=== PATIENT | female | born 1985 | race Caucasian/White ===

== ENCOUNTER → 2016-07-17 | Outpatient (CLI) | payer BC ==
[2016-07-17 12:58] LABS: CH 29.8; CHCM 33.6; HCT 36.4 % (34.0-46.0); HDW 2.21; HGB 12.1 gm/dL (11.4-16.0); MCH 29.4 pg (25.0-35.0); MCHC 33.2 g/dL (31.0-37.0); MCV 88.7 fL (80.0-100.0); RDW 12.1 % (11.5-15.5); WBC 12.1 k/uL (3.8-10.6)
[2016-07-17 13:17] LABS: Glucose 76 mg/dL (74-99); Non-African American GFR(MDRD) >60 (>60 ml/min/1.73 sqM)
[2016-07-17 13:49] LABS: Hepatitis B Surface Ag Index 0.07
[2016-07-19 03:59] LABS: HIV-1/HIV-2 Ab Screen NONREAC (NON REAC)
== END | disposition home or self-care (01) ==
LOC: LABWHC1 11:21
PROVIDERS: ATTEND Obstetrics & Gynecology
DX: Z34.81 Encounter for supervision of other normal pregnancy, first trimester (principal); Z3A.00 Weeks of gestation of pregnancy not specified
CPT/HCPCS: 36415; 82565; 82947; 85027; 86762; 86780; 86850; 86900; 86901; 87340; 87389

== ENCOUNTER → 2016-10-09 | Outpatient (CLI) | payer BC ==
--- NOTE | 2016-10-09 13:57 | US ---
EXAMINATION TYPE: US OB anatomy transabd second trimester. DATE OF EXAM: 10/09/2016 1:11 PM COMPARISON: NONE HISTORY: O36.62X0 Large for dates 2nd trimester TECHNIQUE: Transabdominal (TA) EXAM MEASUREMENTS: GESTATIONAL AGE / DATING Physician Established: (19 weeks/2 days) EDC: 03/04/17 Dates by LMP: unknown Dates by First Scan: not available Dates by Current Scan for: (19 weeks/2 days) EDC: 03/03/17 SURVEY IUP: Single PLACENTA: Anterior PREVIA: No previa JANNA: 14.8 cm CERVICAL LENGTH (transabdominal: norm > 3.0cm): 3.0 cm BIOMETRY PRESENTATION: Breech BPD: 4.4 cm 19 weeks / 2 days HC: 16.6 cm 19 weeks / 2 days AC: 13.9 cm 19 weeks / 2 days FL: 2.9 cm 19 weeks / 2 days ESTIMATED WEIGHT IN GRAMS: 283 grams ESTIMATED WEIGHT IN LBS/OZS: 0 lbs. 10 oz. WEIGHT PERCENTAGE BASED ON ESTABLISHED DATE: 53 % HC/AC: 1.2 FL/AC: 21.5 HEART RATE: 171 bpm RHYTHM: Arrhythmia ANATOMY SEEN (within normal limits): * Lateral Vent (< 1 cm) 0.7 cm * Cisterna Magna (< 1.1 cm) 0.4 cm * Nuchal Fold (< 0.6 cm) 0.4 cm * Cerebellum (varies with age) 1.9 cm Choroid Plexus (bilateral) Midline Falx Cavus Septi Pellucidi Four Chamber Heart Outflow tracts: LVOT/RVOT Stomach Situs Nose / Lips Diaphragm Kidneys (bilateral) Bladder Cord Insert Three Vessel Cord Longitudinal Spine Transverse Spine Arms (bilateral) Legs (bilateral) MATERNAL WALL MEASUREMENT: cm from skin to anterior uterine wall (if exam limited due to body habitus ). Single live intrauterine gestation is present. A breech presentation to fetus is currently seen. Feta l heart tones are noted irregular by technologist during real-time scanning measuring 171 bpm which i s upper limits of normal. There is no ultrasound evidence for placenta previa. Amniotic fluid index i s within normal limits. biometry measurements are congruent and within normal limits. Detailed anatomical survey shows no suspicious abnormality during real-time scanning and on still images saved . With exception of nose and lips and bilateral kidneys which are not well seen on still images saved. IMPRESSION: As above
== END | disposition home or self-care (01) ==
LOC: RADUSWWP 12:17
PROVIDERS: ATTEND Obstetrics & Gynecology
DX: O32.1XX0 Maternal care for breech presentation, not applicable or unspecified (principal); Z3A.19 19 weeks gestation of pregnancy
CPT/HCPCS: 76811

== ENCOUNTER 2016-10-27 17:31 | Outpatient (CLI) | payer BC ==
[2016-10-27 18:10] VITALS: BP 112/65; PULSE 74; RESP 20; TEMP 96.9
--- NOTE | 2016-10-28 10:29 | P.MSEPDOC ---
Presenting Problems - Arrival Data Date of Arrival on Unit: 10/27/16 Time of Arrival on Unit: 17:31 Mode of Transport: Wheelchair - Complaint OB-Reason for Admission/Chief Complaint: Rule Out PROM Medical History - Information : 3 Para: 1 Term: 1 : 0 Abortions: Spontaneous or Elective: 1 Number of Living Children: 1 - Gestational Age Expected Date of Delivery: 03/04/17 Gestational Age by CIARA (wks/days): 21 Weeks and 6 Days - History Complications: Prior Review of Systems - Review of Systems Constitutional: No problems Breast: No problems ENT: No problems Cardiovascular: No problems Respiratory: No problems Gastrointestinal: No problems Genitourinary: No problems Musculoskeletal: No problems Neurological: No problems Skin: No problems Vital Signs - Temperature Temperature: 96.9 F Temperature Source: Skin - Pulse Brachial Pulse Rate: 74 Pulse Assessment Method: Automatic Cuff - Respirations Respiratory Rate: 20 Oxygen Delivery Method: Room Air O2 Sat by Pulse Oximetry: 100 - Blood Pressure Right Arm Blood Pressure: 112/65 Blood Pressure Mean: 80 Blood Pressure Source: Automatic Cuff Medical Screen Scoring (Pre) - Cervical Exam Dilation: Exam Deferred Effacement: Exam Deferred - Uterine Contractions Frequency: N/A Duration: N/A Intensity: N/A - Maternal Vital Signs Maternal Temperature: N/A Maternal Blood Pressure: N/A Signs of Preeclampsia: N/A Maternal Respirations: N/A - Maternal Trauma Maternal Trauma: N/A - Assessment Baseline FHR: 140 Heart Rate - NICHD Category: Category I (Normal) = 0 - Total Score Total Score (Pre): 0 Physician Notification (Pre) - Physician Notified Physician Notified Date: 10/27/16 Physician Notified Time: 18:31 Physician/Practitioner Notifed:: dr sharma Spoke With: dr sharma Medical Screen Scoring (Post) - Post Treatment Level of Risk Post Treatment Level of Risk: Low (0-5) Disposition - Disposition OB Disposition: Triage, Discharge to home, Written follow up instructions reviewed Discharge Date: 10/27/16 Discharge Time: 18:40 I agree with the RN Medical Screening Exam: Yes Risk & Benefit of care provided described in d/c instruction: Yes Diagnosis: FALSE LABOR BEFORE 37 COMPLETED WEEKS OF GEST, SECOND TRI
== END 2016-10-27 18:40 | disposition home or self-care (01) ==
LOC: FBPOP 17:31
PROVIDERS: ATTEND Obstetrics & Gynecology
DX: O47.02 False labor before 37 completed weeks of gestation, second trimester (principal); Z3A.21 21 weeks gestation of pregnancy
CPT/HCPCS: 84112; 99213

== ENCOUNTER → 2016-11-13 | Outpatient (CLI) | payer BC ==
[2016-11-13 10:43] LABS: CH 31.6; CHCM 33.5; HCT 31.6 % (34.0-46.0); HDW 2.37; HGB 10.5 gm/dL (11.4-16.0); MCH 31.5 pg (25.0-35.0); MCHC 33.2 g/dL (31.0-37.0); MCV 94.8 fL (80.0-100.0); Mean Platelet Volume 7.3; RBC 3.33 m/uL (3.80-5.40); RDW 13.3 % (11.5-15.5); WBC 12.9 k/uL (3.8-10.6)
== END | disposition home or self-care (01) ==
LOC: LABWHC1 09:04
PROVIDERS: ATTEND Obstetrics & Gynecology
DX: Z34.82 Encounter for supervision of other normal pregnancy, second trimester (principal); Z3A.00 Weeks of gestation of pregnancy not specified
CPT/HCPCS: 36415; 82950; 85027; 86850

== ENCOUNTER → 2016-12-19 | Outpatient (CLI) | payer BC ==
--- NOTE | 2016-12-19 17:25 | US ---
EXAMINATION TYPE: US thyroid st tissue head/neck DATE OF EXAM: 12/19/2016 COMPARISON: Previous study dated 08/03/2015. CLINICAL HISTORY: E04.1 Thyroid nodule. GLAND SIZE: Right Lobe: 4.3 x 1.6 x 1.8 cm Overall Parenchyma: homogenous Left Lobe: 3.9 x 1.2 x 1.1 cm Overall Parenchyma: homogeneous Isthmus Thickness: 0.3 cm NODULES RIGHT: # of nodules measured on right: 2 1. 0.5 X 0.6 x 0.4 cm isoechoic solid nodule at the lower pole with well-defined margins. This nod ule is wider than tall and shows no intranodular vascularity. Prior size: 0.6 x 0.5 x 0.6 cm 2. 0.4 X 0.4 x 0.2 cm echogenic solid nodule at the mid pole with well-defined margins. This nodule is wider than tall and shows no intranodular vascularity. Prior size: not seen LEFT: # of nodules measured on left: no nodules seen this US. ISTHMUS: # of nodules measured in the isthmus: 0 Bilateral neck scanned, no evidence of lymphadenopathy. IMPRESSION: MULTINODULAR GOITER.
== END | disposition home or self-care (01) ==
LOC: RADUSWWP 15:58
PROVIDERS: ATTEND Otolaryngology
DX: E04.2 Nontoxic multinodular goiter (principal)
CPT/HCPCS: 76536

== ENCOUNTER 2017-01-19 14:20 | Outpatient (CLI) | payer BC ==
[2017-01-19 14:42] VITALS: BP 105/56; PULSE 75; RESP 16; TEMP 97.7
--- NOTE | 2017-01-19 15:15 | P.PN ---
Progress Note - Text Patient is seen in labor and delivery for decreased movement. Patient presented with complaints of no movement for at least 2 or 3 days. She denies any vaginal bleeding and or abdominal pain. Nonstress test is reactive and on monitoring the nurse and I can hear the baby move. I did do a bedside ultrasound which shows gross movement and breathing as well as normal amniotic fluid. Patient states that she still does not perceive this movement although it is obvious the fetus is moving as noted on the monitor and on bedside ultrasound. Plan at this time is to continue to monitor for an hour. As long as heart tones remained reactive without concerns I feel she is stable for discharge home. Patient is going to see me on Saturday in our office and I will repeat her nonstress test at that time. There is no evidence of maternal or compromise at this time.
--- NOTE | 2017-01-20 01:44 | P.MSEPDOC ---
Presenting Problems - Arrival Data Date of Arrival on Unit: 01/19/17 Time of Arrival on Unit: 14:22 Mode of Transport: Ambulatory - Complaint OB-Reason for Admission/Chief Complaint: Decreased Movement Medical History - Information : 3 Para: 1 Term: 1 : 0 Abortions: Spontaneous or Elective: 1 Number of Living Children: 1 - Gestational Age Expected Date of Delivery: 02/26/17 Gestational Age by CIARA (wks/days): 34 Weeks and 5 Days Review of Systems - Review of Systems Constitutional: No problems Breast: No problems ENT: No problems Cardiovascular: No problems Respiratory: No problems Gastrointestinal: No problems Genitourinary: No problems Musculoskeletal: No problems Neurological: No problems Skin: No problems Vital Signs - Temperature Temperature: 97.7 F Temperature Source: Oral - Pulse Right Brachial Pulse Rate: 75 - Respirations Respiratory Rate: 16 Oxygen Delivery Method: Room Air O2 Sat by Pulse Oximetry: 97 - Blood Pressure Right Arm Blood Pressure: 105/56 Blood Pressure Mean: 72 Blood Pressure Source: Automatic Cuff Medical Screen Scoring (Pre) - Cervical Exam Dilation: Exam Deferred - Uterine Contractions Frequency: N/A - Maternal Vital Signs Maternal Temperature: N/A Maternal Blood Pressure: N/A Signs of Preeclampsia: N/A Maternal Respirations: N/A - Maternal Trauma Maternal Trauma: N/A - Assessment Baseline FHR: 135 Heart Rate - NICHD Category: Category I (Normal) = 0 NST: Reactive Position: N/A Station: N/A - Total Score Total Score (Pre): 0 - Level of Risk Level of Risk: Low (0-5) Physician Notification (Pre) - Notification Comment Comment: Dr Collado here in department, pt to be monitored for one hour, tracing reviewed per DR Collado Physician Notification (Post) - Notification Comment Comment: Dr Collado here in department, orders received, monitor patient for one hour then discharge patient home. Disposition - Disposition OB Disposition: Discharge to home Discharge Date: 01/19/17 Discharge Time: 15:37 I agree with the RN Medical Screening Exam: Yes Risk & Benefit of care provided described in d/c instruction: Yes Diagnosis: 33 WEEKS GESTATION OF
== END 2017-01-19 15:37 | disposition home or self-care (01) ==
LOC: FBPOP 14:20
PROVIDERS: ATTEND Obstetrics & Gynecology
DX: O36.8130 Decreased fetal movements, third trimester, not applicable or unspecified (principal); Z3A.34 34 weeks gestation of pregnancy
CPT/HCPCS: 59025; 99213

== ENCOUNTER 2017-02-26 05:40 | Inpatient (IN) | payer BC ==
[2017-02-22 13:39] VITALS: BMI 28.8
--- NOTE | 2017-02-25 07:23 | P.HPOB ---
History of Present Illness H&P Date: 02/25/17 Chief Complaint: Patient is presenting for repeat section and tubal ligation. This patient is a pleasant 31-year-old 3 para 1 female estimated date of confinement 03/04/2017 estimated gestational age 39 and one sevenths weeks gestation who presents to labor and delivery for elective repeat section and she is also requesting permanent sterilization. Patient's previous she had a primary section for failure progress for an 8 lbs. 9 oz. baby. I did review these records with the patient and she has requested repeat section. Patient also desires no further children. Patient has had some episodes of depressive symptoms this most recently and has requested going on antidepressants because she taken them in the past. She otherwise has been uncomplicated. Review of Systems Constitutional: Denies chills, Denies fever Ears, nose, mouth and throat: Denies headache, Denies sore throat Cardiovascular: Denies chest pain, Denies shortness of breath Gastrointestinal: Reports heartburn Genitourinary: Reports Menstruation: Reports amenorrhea Musculoskeletal: Denies myalgias Past Medical History Past Medical History: GERD/Reflux Additional Past Medical History / Comment(s): ACID REFLUX WITH . - LMP MAY 2016. History of Any Multi-Drug Resistant Organisms: None Reported Past Surgical History: Appendectomy, Section Past Anesthesia/Blood Transfusion Reactions: No Reported Reaction Past Psychological History: Anxiety, Depression Smoking Status: Never smoker Past Alcohol Use History: None Reported Past Drug Use History: None Reported - Past Family History Mother Family Medical History: No Reported History Medications and Allergies Home Medications Medication Instructions Recorded Confirmed Type Vitamin -[employer] 1 tab PO DAILY 02/22/17 02/22/17 History Allergies Allergy/AdvReac Type Severity Reaction Status Date / Time No Known Allergies Allergy Verified 02/22/17 13:31 Exam - OBG Physical Exam Abdomen: bowel sounds normal, no diffuse tenderness, no bruit present, no guarding noted, no hepatomegaly, no splenomegaly, no mass Vulva: both: normal Vagina: normal moisture, no discharge Cervix: no lesion (Cervix in the office was closed.), no discharge Uterus: normal size Results blood work shows she is A-, rubella low positive, HIV nonreactive, RPR is nonreactive, hepatitis B was negative, Glucola was normal, ultrasounds have been normal, patient did receive RhoGAM on December 06. Assessment and Plan (1) Third trimester Narrative/Plan: This is a pleasant 31-year-old 3 para 1 female 39 and one sevenths weeks gestation who presents to labor and delivery for elective repeat section and also requesting permanent sterilization. Plan is repeat low transverse section and bilateral partial salpingectomy. Patient does understand the surgery and risks including risks of infection, bleeding, possible injury to bowel, bladder, vessels, and/or other organs. She also understands that a tubal ligation is considered a permanent procedure however there is a failure rate of approximately 20-25 per thousand procedures done. Patient also understands risk of DVT and pulmonary embolism. All the patient's questions are answered and a written consent is obtained. Status: Acute (2) Previous delivery affecting Status: Acute (3) Family planning Status: Acute (4) Rh negative status during Status: Acute
[2017-02-26] MEDS ORDERED: CITRIC ACID-SODIUM CITRATE 15 ML CUP PO ONE (05:57)
[2017-02-26] MEDS ORDERED: LACTATED RINGERS 1,000 ML IV SCH (05:57)
[2017-02-26] MEDS ORDERED: LACTATED RINGERS 1,000 ML IV ONE (05:57)
[2017-02-26 06:27] LABS: Basophils % (A) 0 %; CH 32.3; CHCM 35.2; Eosinophils # (A) 0.3 k/uL (0-0.7); Eosinophils % (A) 2 %; HCT 34.4 % (34.0-46.0); HDW 2.56; HGB 12.1 gm/dL (11.4-16.0); Luc # (Auto) 0.39; Luc % (Auto) 3; Lymphocytes # (A) 2.6 k/uL (1.0-4.8); Lymphocytes % (A) 19 %; MCH 32.5 pg (25.0-35.0); MCHC 35.3 g/dL (31.0-37.0); MCV 92.1 fL (80.0-100.0); Mean Platelet Volume 8.2; Monocytes # (A) 0.9 k/uL (0-1.0); Monocytes % (A) 7 %; Neutrophils # (A) 9.3 k/uL (1.3-7.7); Neutrophils % (A) 69 %; RBC 3.74 m/uL (3.80-5.40); RDW 13.3 % (11.5-15.5); WBC 13.5 k/uL (3.8-10.6)
[2017-02-26] MEDS ORDERED: ceFAZolin 2 GM in SODIUM CHLORIDE 0.9% 100 ML IVPB ONE (07:15)
[2017-02-26] MEDS ORDERED: MORPHINE SULFATE (PF) 0.3 MG/0.3 ML SYR ONE (08:11)
[2017-02-26] MEDS ORDERED: OXYTOCIN 10 UNIT/ML 1 ML VIAL ONE (08:11)
[2017-02-26] MEDS ORDERED: diphenhydrAMINE 50 MG/ML 1 ML VIAL IVP PRN (09:21)
[2017-02-26] MEDS ORDERED: Rhogam IMMUNE GLOBULIN 1,500 UNIT/1 ML IM ONE (09:21)
[2017-02-26] MEDS ORDERED: METOCLOPRAMIDE 5 MG/ML 2 ML VIAL IVP PRN (09:21)
[2017-02-26] MEDS ORDERED: diphenhydrAMINE 25 MG CAP PO PRN (09:21)
[2017-02-26] MEDS ORDERED: SIMETHICONE 80 MG CHEWABLE PO PRN (09:21)
[2017-02-26] MEDS ORDERED: ACETAMINOPHEN TAB 325 MG TAB PO PRN (09:21)
[2017-02-26] MEDS ORDERED: NALOXONE 0.4 MG/ML 1 ML VIAL IV PRN ×2 (09:21→09:40)
[2017-02-26] MEDS ORDERED: ZOLPIDEM 5 MG TAB PO PRN (09:21)
[2017-02-26] MEDS ORDERED: Acetaminophen-Codeine 300-30mg TAB PO PRN ×2 (09:21)
[2017-02-26] MEDS ORDERED: IBUPROFEN 600 MG TAB PO PRN (09:21)
[2017-02-26] MEDS ORDERED: ONDANSETRON 4 MG/2 ML VIAL IVP PRN ×2 (09:21→09:40)
[2017-02-26] MEDS ORDERED: OXYTOCIN 20 UNITS/1000 ML NS 1,000 ML IV SCH (09:30)
[2017-02-26] MEDS ORDERED: NALBUPHINE 10 MG/ML AMPUL IV PRN (09:40)
[2017-02-26] MEDS ORDERED: KETOROLAC 30 MG/ML 1 ML VIAL IVP PRN (09:40)
[2017-02-26] MEDS ORDERED: MORPHINE SULFATE 4 MG/ML SYRINGE IVP PRN (09:40)
--- NOTE | 2017-02-26 10:18 | P.OP ---
Date of Procedure: 02/26/17 Preoperative Diagnosis: #1: 39 and one sevenths week intrauterine . #2: Previous section desires repeat #3: Spontaneous rupture membranes and early labor Postoperative Diagnosis: Same Procedure(s) Performed: Repeat low transverse section. Implants: Anesthesia: spinal Surgeon: Juan Francisco Collado Certified [employer] Administrator #1: Chrissy Camp Estimated Blood Loss (ml): 800 Pathology: other (Sent to) Condition: stable Disposition: floor Indications for Procedure: Please see dictated H&P for intimate details of this patient's admission. In brief summary this is a pleasant 31-year-old 3 para 1 female estimated date of confinement 03/04/2017 estimated gestational age 39 and one sevenths weeks gestation who is admitted to labor and delivery for elective repeat section. Of note on admission the patient as she was walking through the labor and delivery doors did have spontaneous rupture membranes for clear fluid and also some onset of contractions. Patient and I have discussed the surgery in the office and she understands the risks of the surgery including risks of infection, bleeding, possible injury to bowel, bladder, vessels, and/ or other organs. We had previously discussed a tubal ligation however intraoperatively we discussed not doing that because the condition ( please see further notes). Operative Findings: This was a limp male infant that had no respiratory effort or gross movements at the time of delivery. Apgars are unavailable to me at the time of this dictation. Please see dictated pediatric and nursing resuscitative notes. The uterus tubes and ovaries appear normal for term gestation. The placenta appeared grossly normal Description of Procedure: This patient has a Pham catheter placed to straight drain. She is subsequently taken to the operating room where she sat up and spinal anesthetic is administered without incident. With an adequate level of anesthesia she has abdominal prep and drape. Scalpel was then taken the previous Pfannenstiel incision is incised. A second scalpel is taken down to the fascia and the fascia is scored with the scalpel and the fascial incision is extended bilaterally using the Hawley scissors. The fascia is dissected sharply off the rectus muscles with the Hawley scissors. Rectus muscles are then and the peritoneum identified and entered sharply. The peritoneal incision extended superior and inferior without difficulty. Bladder blade is placed at this time. The bladder peritoneum was then sharply dissected off the lower uterine segment. Scalpels then taken and a low transverse uterine incision is then made. Using a hemostat I gently into the uterine cavity and there is loss of clear fluid. The 's head is then gently guided through the incision with fundal pressure delivered. There is no evidence of a nuchal cord. I bulb suction the mouth and nares at this time. We then have delivery the anterior posterior shoulder and rest this 's body. At this time the infant appears limp and has no respiratory effort. He also has no spontaneous movement at this time. I immediately clamped the umbilical cord and the is handed off to the nurses in attendance in special care nursing staff and medical interpreter are summoned. Again please see their nursing notes and the pediatric dictated notes. Anesthesia does assist in the resuscitative measures at this time. After delivery of the the placenta is manually extracted intact. The uterus is then externalized and the uterine incision is demarcated with Feldman clamps. The uterus appears free of all debris. Uterine incision is then closed using 0 Vicryl running locked fashion in 2 layers. Excellent hemostasis is noted bladder peritoneum was also reapproximated this time with a 3-0 Vicryl. At this time it is evident that the is having some significant respiratory resuscitative problems and due to my concern for poor I recommend that the patient did not proceed with a tubal ligation at this time. She does understand I can do this at a later date. Uterus is placed back into the abdomen. The parietal peritoneum was then identified and closed using 0 Vicryl running fashion. Rectus muscles are reapproximated in 0 Vicryl interrupted fashion. Fascial incision is closed using a 0 PDS. Fascial incision is intact and hemostatic. Subcutaneous tissues and closed using a 3-0 Vicryl. Skin is and closed using jina. All counts are correct 3. There are no complications other than the above-mentioned concerns. Mother's taken to her birthing suite. Resuscitative measures continue with the infant at the time of this dictation.
[2017-02-26] MEDS ORDERED: PARoxetine 20 MG TAB PO SCH (11:00)
[2017-02-26] MEDS ORDERED: ACETAMINOPHEN IV (For NPO) 1,000 MG in EMPTY BAG 1 BAG IVPB STA (13:05)
[2017-02-26] MEDS: KETOROLAC 30 MG/ML 1 ML VIAL IVP PRN ×2 (16:18→22:30)
[2017-02-26] MEDS: SENNOSIDES-DOCUSATE SODIUM 1 EACH TAB PO SCH (22:34)
[2017-02-26] MEDS ORDERED: CITALOPRAM HYDROBROMIDE 20 MG TAB PO SCH (22:45)
[2017-02-26] MEDS: LACTATED RINGERS 1,000 ML IV SCH (22:53)
[2017-02-26 23:55] VITALS: RESP 16
[2017-02-27] MEDS: LACTATED RINGERS 1,000 ML IV SCH (04:58)
[2017-02-27 05:38] LABS: Basophils % (A) 0 %; CH 33.1; Eosinophils # (A) 0.3 k/uL (0-0.7); Eosinophils % (A) 1 %; HDW 2.45; HGB 11.1 gm/dL (11.4-16.0); Luc # (Auto) 0.27; Luc % (Auto) 1; Lymphocytes # (A) 1.3 k/uL (1.0-4.8); Lymphocytes % (A) 7 %; MCH 32.1 pg (25.0-35.0); MCHC 33.8 g/dL (31.0-37.0); Mean Platelet Volume 8.5; Monocytes % (A) 5 %; Neutrophils # (A) 16.4 k/uL (1.3-7.7); Neutrophils % (A) 86 %; RBC 3.47 m/uL (3.80-5.40); RDW 13.7 % (11.5-15.5); WBC 19.1 k/uL (3.8-10.6); WBC (Perox) 19.49
[2017-02-27] MEDS: KETOROLAC 30 MG/ML 1 ML VIAL IVP PRN (06:15)
--- NOTE | 2017-02-27 07:21 | P.PN ---
Progress Note - Text Date: 02/27/2017 Time: 07 The patient is status post section Vital signs stable VAS: 0-10 Patient has no complaints of pain. The patient incurred some minimal itching yesterday, this itching is now subsiding. Pain meds to be managed by service.
--- NOTE | 2017-02-27 07:25 | P.PNOBGPC ---
Subjective - Subjective Principal diagnosis: S/P RLTCS POD #1 Interval history: Patient seen and examined. Denies N/V, F/C, CP, SOB, calf pain. states pain is controlled. tolerating reg diet, passing flatus and voiding without difficulty. Patient reports: Reports appetite normal, Reports voiding normally, Reports pain well controlled, Reports ambulating normally Objective - Vital Signs Latest vital signs: Vital Signs Temp Pulse Resp BP Pulse Ox 02/27/17 06:00 98 02/27/17 04:00 98.7 F 78 16 106/69 02/26/17 23:55 98.3 F 75 16 106/65 97 02/26/17 22:40 97 02/26/17 20:00 98.4 F 84 16 101/66 96 02/26/17 16:00 98 F 76 15 99/54 97 02/26/17 13:00 97.8 F 78 16 101/70 98 02/26/17 10:58 96.9 F L 72 14 109/68 100 02/26/17 10:28 97.2 F L 73 14 112/63 100 02/26/17 09:58 96.8 F L 65 14 98/56 100 02/26/17 09:43 96.6 F L 66 14 98/58 99 02/26/17 09:40 99 02/26/17 09:28 96.6 F L 73 14 103/58 99 02/26/17 09:13 79 16 109/55 02/26/17 08:58 96.7 F L 89 16 155/56 Intake and Output 02/26/17 02/27/17 02/27/17 22:59 06:59 14:59 Output Total 600 725 Balance -600 -725 Output: Urine 600 725 Other: # Voids 1 - Exam Lungs: bilateral: normal Chest: Normal S1, Normal S2 Extremities: Present: normal Abdomen: Present: normal appearance, soft. Absent: distention, tenderness Incision: Present: normal, dry, intact Uterus: Present: normal, firm - Labs Labs: Abnormal Lab Results - Last 24 Hours (Table) 02/27/17 Range/Units 05:25 WBC 19.1 H (3.8-10.6) k/uL RBC 3.47 L (3.80-5.40) m/uL Hgb 11.1 L (11.4-16.0) gm/dL Hct 33.0 L (34.0-46.0) % Neutrophils # 16.4 H (1.3-7.7) k/uL Assessment and Plan (1) Status post repeat low transverse section Narrative/Plan: 1. Patient would like to be discharged home today considering her baby was transferred to tertiary facility. However to make sure that her pain is controlled with oral pain medication without the Duramorph from the spinal. I will keep her until this afternoon to make sure that the case. Then she will be discharged home on Tylenol 3 and Motrin. She's also given a prescription for Celexa which she has been on in the past. Current Visit: Yes Status: Acute Code(s): Z98.891 - HISTORY OF UTERINE SCAR FROM PREVIOUS SURGERY SNOMED Code(s): 393314551
[2017-02-27 08:24] VITALS: BP 101/68; PULSE 75; TEMP 98
[2017-02-27] MEDS: SENNOSIDES-DOCUSATE SODIUM 1 EACH TAB PO SCH (09:07)
[2017-02-27] MEDS ORDERED: MEASLES-MUMPS-RUBELLA VACC/PF 12,500 UNIT/0.5 ML VIAL SQ ONE (14:02)
== END 2017-02-27 14:45 | disposition home or self-care (01) | DRG 766 ==
LOC: 4FBP 05:40
PROVIDERS: ADMIT Obstetrics & Gynecology; ATTEND Obstetrics & Gynecology
PROC: 10D00Z1 Extraction of Products of Conception, Low, Open Approach (ICD-10-PCS; principal; 2017-02-26 08:11)
DX: O34.211 Maternal care for low transverse scar from previous cesarean delivery (principal); F32.9 Major depressive disorder, single episode, unspecified; Z37.0 Single live birth; O99.344 Other mental disorders complicating childbirth; O26.893 Other specified pregnancy related conditions, third trimester; F41.9 Anxiety disorder, unspecified; K21.9 Gastro-esophageal reflux disease without esophagitis; O99.62 Diseases of the digestive system complicating childbirth; Z67.91 Unspecified blood type, Rh negative; Z3A.39 39 weeks gestation of pregnancy
CPT/HCPCS: 85025; 86850; 86900; 86901; 88307; 90707

== ENCOUNTER → 2018-01-16 | Outpatient (CLI) | payer BC ==
--- NOTE | 2018-01-16 16:04 | US ---
EXAMINATION TYPE: US thyroid st tissue head/neck DATE OF EXAM: 01/16/2018 COMPARISON: 12/19/2016 and 08/03/2015 CLINICAL HISTORY: E04.1 Nontoxic single thyroid nodule. GLAND SIZE: Right Lobe: 4.4 x1.9 x1.7 cm Overall Parenchyma: homogenous Left Lobe: 4.2 x1.3 x1.2 cm Overall Parenchyma: homogeneous Isthmus Thickness: 0.4 cm NODULES RIGHT: # of nodules measured on right: 2 1. 0.6 X 0.4 x 0.4 cm isoechoic solid nodule at the lower pole with well-defined margins; . This n odule is wider than tall and shows no intranodular vascularity. Prior size: 0.5 x 0.6 x 0.4 cm 2. 0.4 X 0.3 x 0.4 cm echogenic solid nodule at the mid pole with well-defined margins; . This nodu le is wider than tall and shows no intranodular vascularity. Prior size: 0.4 x 0.4 x 0.2 cm LEFT: # of nodules measured on left: 0 ISTHMUS: # of nodules measured in the isthmus: 0 Bilateral neck scanned, no evidence of lymphadenopathy. IMPRESSION: Similar size of the low suspicion subcentimeter thyroid nodules in comparison to the prior of 12/20/19 17 and 08/03/2015.
== END | disposition home or self-care (01) ==
LOC: RADUSWWP 15:27
PROVIDERS: ATTEND Family Medicine
DX: E04.2 Nontoxic multinodular goiter (principal)
CPT/HCPCS: 76536

== ENCOUNTER 2018-10-01 08:53 | Outpatient (CLI) | payer BC ==
[2018-10-01 09:30] VITALS: BP 117/65; PULSE 85; RESP 16; TEMP 98.2
--- NOTE | 2018-10-02 06:34 | P.MSEPDOC ---
Presenting Problems - Arrival Data Date of Arrival on Unit: 10/01/18 Time of Arrival on Unit: 09:05 Mode of Transport: Ambulatory - Complaint OB-Reason for Admission/Chief Complaint: Rule Out PROM Comment: pt arrived c/o a gush of fluid at 3 am and one small gush after that. pt denies any leakage since 7 am pt also denies any contractions Medical History - Information : 4 Para: 1 Term: 1 : 0 Abortions: Spontaneous or Elective: 2 Number of Living Children: 1 - Gestational Age Gestational Age by CIARA (wks/days): 38 Weeks and 2 Days Review of Systems - Review of Systems Constitutional: No problems Breast: No problems ENT: No problems Cardiovascular: No problems Respiratory: No problems Gastrointestinal: No problems Genitourinary: No problems Musculoskeletal: No problems Neurological: No problems Skin: No problems Vital Signs - Temperature Temperature: 98.2 F Temperature Source: Oral - Pulse Right Brachial Pulse Rate: 85 Pulse Assessment Method: Automatic Cuff - Respirations Respiratory Rate: 16 Oxygen Delivery Method: Room Air - Blood Pressure Right Arm Blood Pressure: 117/65 Blood Pressure Mean: 82 Blood Pressure Source: Automatic Cuff Medical Screen Scoring (Pre) - Cervical Exam Dilation: Exam Deferred Effacement: Exam Deferred Membranes: Intact - Uterine Contractions Frequency: N/A Duration: N/A Intensity: N/A - Maternal Vital Signs Maternal Temperature: N/A Signs of Preeclampsia: N/A Maternal Respirations: N/A - Pain Assessment Pain Scale Used: Numeric (1 - 10) Pain Intensity: 0 Pain Management Goal: 0 Pain Behavior: Vocalization - Maternal Trauma Maternal Trauma: N/A - Assessment Baseline FHR: 140 Heart Rate - NICHD Category: Category I (Normal) = 0 NST: Reactive Position: N/A Station: N/A - Total Score Total Score (Pre): 0 - Level of Risk Level of Risk: Low (0-5) Physician Notification (Post) - Physician Notified Physician Notified Date: 10/01/18 Physician Notified Time: 09:30 Spoke With: dr alberts New Order Received: Yes - Notification Comment Comment: amnisure negative nst reactive. may discharge to home undelivered Disposition - Disposition OB Disposition: Discharge to home Discharge Date: 10/01/18 Discharge Time: 10:00 I agree with the RN Medical Screening Exam: Yes Risk & Benefit of care provided described in d/c instruction: Yes Diagnosis: FALSE LABOR AT OR AFTER 37 COMPLETED WEEKS OF GESTATION
== END 2018-10-01 10:00 | disposition home or self-care (01) ==
LOC: FBPOP 08:53
PROVIDERS: ATTEND Obstetrics & Gynecology
DX: O47.1 False labor at or after 37 completed weeks of gestation (principal); Z3A.38 38 weeks gestation of pregnancy
CPT/HCPCS: 59025; 84112; 99213

== ENCOUNTER 2018-10-06 05:51 | Inpatient (IN) | payer BC ==
--- NOTE | 2018-10-03 07:08 | P.HPOB ---
History of Present Illness H&P Date: 10/03/18 Chief Complaint: Repeat section and tubal ligation This patient is a pleasant 33-year-old 4 para 2 female estimated date of confinement 10/13/2018 estimated gestational age 39 weeks who presents to labor and delivery for elective repeat section and tubal ligation. Patient's history is such that her last her son approximately 11 days after and had new onset diagnosis of Type O SMA. Patient is seen maternal medicine and genetic testing indicates that this baby is not affected by the SMA. She has had testing regardless status been normal. cardiac echo that was normal. 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 Patient's had 2 previous section desires repeat and she also is requesting permanent sterilization. Review of Systems Genitourinary: Reports Menstruation: Reports amenorrhea Past Medical History Past Medical History: GERD/Reflux Additional Past Medical History / Comment(s): Patient had 2 previous sections. First baby is a normal baby girl. Second child had Type 0 SMA and 11 days after . History of Any Multi-Drug Resistant Organisms: None Reported Past Surgical History: Appendectomy, Section Past Anesthesia/Blood Transfusion Reactions: No Reported Reaction Past Psychological History: Anxiety, Depression Additional Psychological History / Comment(s): NO CURRENT MEDS. Smoking Status: Never smoker Past Alcohol Use History: None Reported Past Drug Use History: None Reported - Past Family History Mother Family Medical History: No Reported History Medications and Allergies Home Medications Medication Instructions Recorded Confirmed Type Vitamin -[facility] 1 tab PO DAILY 02/22/17 10/01/18 History Allergies Allergy/AdvReac Type Severity Reaction Status Date / Time No Known Allergies Allergy Verified 10/01/18 09:05 Exam - OBG Physical Exam Abdomen: bowel sounds normal, no diffuse tenderness, no bruit present, no guarding noted, no hepatomegaly, no splenomegaly, no mass Vulva: both: normal Vagina: normal moisture, no discharge Cervix: no lesion (Cervix in the office is closed.), no discharge Uterus: enlarged (Fundal height is consistent with dates.) Results blood work shows she is A-, rubella immune, RPR nonreactive, HIV nonreactive, hepatitis B was negative, Glucola was normal, amniocentesis was normal 46 XX, cardiac echo was normal, amniocentesis was normal, SMA testing shows this is not affected. Assessment and Plan Assessment: This is a pleasant 33-year-old 4 para 2 female 39-0/7 weeks gestation admitted to labor and delivery for repeat section and also requesting permanent sterilization. Patient and I discussed tubal ligation she understands this is considered permanent however there is a failure rate of approximately 5 or less per thousand procedures done. Patient also understands surgery itself has risks including risks of infection, bleeding, possible injury to bowel, bladder, vessels, and/or other organs. All the patient's questions are answered written consent is obtained. Patient also has a previous child affected with Type 0 SMA and testing has indicated this baby does not have this. Plan is repeat low transverse section and bilateral partial salpingectomy. (1) 39 weeks gestation of Status: Acute Code(s): Z3A.39 - 39 WEEKS GESTATION OF SNOMED Code(s): 53370703 (2) Previous delivery affecting Status: Acute Code(s): O34.219 - MATERNAL CARE FOR UNSP TYPE SCAR FROM PREVIOUS DEL SNOMED Code(s): 233182567 (3) Rh negative status during Status: Acute Code(s): O09.899 - SUPERVISION OF OTHER HIGH RISK PREGNANCIES, UNSP TRIMESTER SNOMED Code(s): 554599071
[2018-10-03 14:00] VITALS: BMI 31.1
[2018-10-06] MEDS ORDERED: LACTATED RINGERS 1,000 ML IV SCH (06:07)
[2018-10-06] MEDS ORDERED: CITRIC ACID-SODIUM CITRATE 15 ML CUP PO ONE (06:07)
[2018-10-06] MEDS ORDERED: LACTATED RINGERS 1,000 ML IV ONE (06:07)
[2018-10-06 06:20] LABS: Basophils # (A) 0.1 k/uL (0-0.2); Basophils % (A) 0 %; Eosinophils # (A) 0.3 k/uL (0-0.7); Eosinophils % (A) 3 %; HCT 35.9 % (34.0-46.0); HGB 12.6 gm/dL (11.4-16.0); Lymphocytes # (A) 2.5 k/uL (1.0-4.8); Lymphocytes % (A) 20 %; MCH 32.7 pg (25.0-35.0); MCHC 34.9 g/dL (31.0-37.0); MCV 93.5 fL (80.0-100.0); Mean Platelet Volume 8.9; Monocytes % (A) 8 %; Neutrophils # (A) 8.5 k/uL (1.3-7.7); Neutrophils % (A) 68 %; Platelet Count 179 k/uL (150-450); RBC 3.84 m/uL (3.80-5.40); RDW 13.2 % (11.5-15.5); WBC 12.6 k/uL (3.8-10.6)
[2018-10-06] MEDS ORDERED: ceFAZolin IN SWFI 2 GM/20 ML SYRINGE IVP ONE (07:15)
[2018-10-06] MEDS ORDERED: NALBUPHINE 10 MG/ML (1 ML AMP) ONE (07:51)
[2018-10-06] MEDS ORDERED: OXYTOCIN 10 UNIT/ML 1 ML VIAL ONE (07:51)
[2018-10-06] MEDS ORDERED: KETOROLAC 30 MG/ML 1 ML VIAL ONE (07:51)
[2018-10-06] MEDS ORDERED: ONDANSETRON 4 MG/2 ML VIAL ONE (07:51)
[2018-10-06] MEDS ORDERED: PHENYLEPHRINE-0.9% NACL SYG 1 MG/10 ML SYRINGE ONE (07:51)
[2018-10-06] MEDS ORDERED: MORPHINE SULFATE (PF) 0.3 MG/0.3 ML SYR ONE (07:51)
--- NOTE | 2018-10-06 08:49 | P.OP ---
Date of Procedure: 10/06/18 Preoperative Diagnosis: #1: 39-0/7 week . #2: Previous section 2 desires repeat. #3: Multi parity desires permanent sterilization Postoperative Diagnosis: Same Procedure(s) Performed: #1: Repeat low transverse section. #2: Bilateral partial salpingectomy Anesthesia: spinal Surgeon: Juan Francisco Collado Senior Data Mining Analyst #1: Lisa Muhammad Estimated Blood Loss (ml): 800 Pathology: other (Bilateral fallopian tube segments) Condition: stable Disposition: floor Indications for Procedure: Please see dictated H&P for intimate details of this patient's admission. Brief summary this is a pleasant 33-year-old 4 para 2 female 39 weeks gestation who is admitted to labor and delivery for elective repeat section and permanent sterilization. Patient I have discussed the surgery and risks including risks of infection, bleeding, possible injury bowel, bladder, vessels, and/or other organs. She understands the risk of DVT and pulmonary embolism. We have also understands did that the procedure is considered permanent (tubal ligation) however she did become she has a 50% chance of a tubal or ectopic . All the patient's questions are answered written consent is obtained. Operative Findings: This is a vigorous viable female Apgars 9 and 9 delivery time was 0813 hrs. Infant has spontaneous respirations and cry and grossly appeared normal Description of Procedure: This patient has a Pham catheter placed to straight drain. She is subsequently taken to the operating room where she sat up and spinal anesthetic is administered. After an adequate level of anesthesia she has abdominal prep and drape. Scalpels then taken previous Pfannenstiel incision is incised. A second scalpel is taken down to the fascia and the fascia scored with a knife. Fascial incision extended bilaterally using the Hawley scissors. Fascia is then dissected sharply off the rectus muscles. Rectus muscles are and the peritoneum identified and entered sharply. Peritoneal incision extended superior and inferior without difficulty. Bladder blade is then placed. Bladder peritoneum was taken off the lower uterine segment sharply. Scalpels and taken low transverse uterine incision is then made. I then enter the uterine cavity bluntly with a hemostat. There is loss of clear fluid. This is incision is extended bluntly. 's head is then guided through the incision with fundal pressure delivered. Mouth and nares are bulb suctioned. There is no evidence of a nuchal cord. We then have delivery the rest of this infant's body. Is a vigorous viable female infant. Apgars are 9 and 9 delivery time was 0813 hours. has spontaneous respirations and good cry. Local cord is then doubly clamped and cut appears to be trivascular. Cord blood is obtained for Rh status. Placenta is then manually extracted intact. Uterus is then externalized. Uterine incision demarcated with Feldman clamps. Is quite thin in the left lower side but otherwise the uterus appears normal. Uterine incision is then reapproximated using 0 Vicryl running locked fashion 2 layers. Excellent hemostasis is noted. The bladder peritoneum was reapproximated using 3-0 Vicryl. I then turned my attention of left fallopian tube approximate 4 cm from the cornual insertion a small window made to the mesial salpinx. Using 2-0 silk I doubly ligate a 2 cm segment of the tube. This is excised and handed off to pathology. There is some bleeding from the distal and therefore the distal and is also excised and ligated with 2-0 silk in excellent hemostasis is noted. Turned my attention right fallopian tube similar technique a segment of the right fallopian tube is removed. Excess fluid is removed from the abdomen and pelvis. Uterus placed back into the abdomen. Final inspection of the tubal ends is done and they appeared to be hemostatic. The uterine incision appears to be hemostatic. Parietal peritoneum was then closed in 0 Vicryl running fashion. Rectus muscles are approximate Vicryl interrupted fashion. Fascia is then closed using 0 PDS. Fascial incision is intact and hemostatic. Subcutaneous tissues and closed using a 3-0 Vicryl. Skin is and closed using jina. All counts are correct 3. There are no complications. and mother are taken to the birthing suite in satisfactory condition.
[2018-10-06] MEDS ORDERED: CITALOPRAM HYDROBROMIDE 20 MG TAB PO SCH (09:00)
[2018-10-06] MEDS ORDERED: METOCLOPRAMIDE 5 MG/ML 2 ML VIAL IVP PRN (09:29)
[2018-10-06] MEDS ORDERED: diphenhydrAMINE 50 MG/ML 1 ML VIAL IVP PRN (09:29)
[2018-10-06] MEDS ORDERED: LANOLIN CREAM 5 GM TUBE TOPICAL PRN (09:29)
[2018-10-06] MEDS ORDERED: SIMETHICONE 80 MG CHEWABLE PO PRN (09:29)
[2018-10-06] MEDS ORDERED: NALOXONE 0.4 MG/ML 1 ML VIAL IV PRN (09:29)
[2018-10-06] MEDS ORDERED: ZOLPIDEM 5 MG TAB PO PRN (09:29)
[2018-10-06] MEDS ORDERED: ONDANSETRON 4 MG/2 ML VIAL IVP PRN (09:29)
[2018-10-06] MEDS ORDERED: ACETAMINOPHEN TAB 325 MG TAB PO PRN (09:29)
[2018-10-06] MEDS ORDERED: OXYTOCIN 20 UNITS/1000 ML NS 1,000 ML IV SCH (09:29)
[2018-10-06] MEDS ORDERED: diphenhydrAMINE 25 MG CAP PO PRN (09:29)
[2018-10-06] MEDS: SENNOSIDES-DOCUSATE SODIUM 1 EACH TAB PO SCH (10:51)
[2018-10-06] MEDS: KETOROLAC 30 MG/ML 1 ML VIAL IVP PRN (15:12)
[2018-10-06] MEDS: CITALOPRAM HYDROBROMIDE 20 MG TAB PO SCH (21:12)
[2018-10-07] MEDS: KETOROLAC 30 MG/ML 1 ML VIAL IVP PRN ×2 (00:13→06:34)
--- NOTE | 2018-10-07 06:30 | P.PNOBGPC ---
Subjective - Subjective Patient reports: Reports appetite normal, Reports voiding normally, Reports pain well controlled, Reports ambulating normally : doing well Objective - Vital Signs Latest vital signs: Vital Signs Temp Pulse Resp BP Pulse Ox 10/07/18 04:00 98.1 F 77 16 122/71 10/06/18 23:47 98 F 83 16 106/68 10/06/18 20:00 98.1 F 71 16 104/68 10/06/18 16:20 98.2 F 66 16 116/80 95 10/06/18 14:04 98.5 F 75 16 101/54 95 10/06/18 10:46 96.7 F L 58 L 16 105/61 95 10/06/18 10:16 60 16 99/59 97 10/06/18 09:46 96.7 F L 54 L 16 104/60 96 10/06/18 09:31 58 L 16 103/58 96 10/06/18 09:16 62 16 102/59 98 10/06/18 09:01 68 16 104/60 96 10/06/18 08:46 97.7 F 77 16 118/64 Intake and Output 10/06/18 10/06/18 10/07/18 14:59 22:59 06:59 Intake Total 1000 1600 100 Output Total 121 424 3363 Balance 200 1350 -2100 Intake: IV 1000 Intake, IV Titration 1600 Amount Lactated Ringers 1,000 ml 1000 @ 125 mls/hr IV .Q8H EDIE Rx#:[id number] Oxytocin 20 Units/1000 ml 600 Ns 1,000 ml @ Per Protocol IV .Q0M EDIE Rx#: [id number] Oral 100 Output: Urine 074 997 8692 Estimated Blood Loss 500 Other: Voiding Method Indwelling Catheter - Exam Lungs: bilateral: normal Chest: Normal S1, Normal S2 Extremities: Present: normal Abdomen: Present: normal appearance, soft. Absent: distention, tenderness Incision: Present: normal, dry, intact Uterus: Present: normal, firm Assessment and Plan Assessment: Post operative day #1. Patient is resting without complaints. Vital signs are stable she is afebrile. Uterus is firm nontender and her incision is intact and dry. CBC is pending at this time. My impression this is a normal postoperative course. Plan is to encourage ambulation, allow the patient to shower, check a CBC, and continue routine postoperative care. (1) 39 weeks gestation of Current Visit: No Status: Acute Code(s): Z3A.39 - 39 WEEKS GESTATION OF SNOMED Code(s): 31606611 (2) Previous delivery affecting Current Visit: No Status: Acute Code(s): O34.219 - MATERNAL CARE FOR UNSP TYPE SCAR FROM PREVIOUS DEL SNOMED Code(s): 423419687 (3) Rh negative status during Current Visit: No Status: Acute Code(s): O09.899 - SUPERVISION OF OTHER HIGH RISK PREGNANCIES, UNSP TRIMESTER SNOMED Code(s): 051477269
[2018-10-07 06:49] LABS: Basophils % (A) 0 %; Eosinophils # (A) 0.2 k/uL (0-0.7); Eosinophils % (A) 1 %; HCT 31.4 % (34.0-46.0); HGB 10.8 gm/dL (11.4-16.0); Lymphocytes # (A) 1.5 k/uL (1.0-4.8); Lymphocytes % (A) 8 %; MCH 31.9 pg (25.0-35.0); MCHC 34.4 g/dL (31.0-37.0); MCV 92.9 fL (80.0-100.0); Mean Platelet Volume 8.8; Monocytes # (A) 1.1 k/uL (0-1.0); Monocytes % (A) 6 %; Neutrophils # (A) 14.4 k/uL (1.3-7.7); Neutrophils % (A) 82 %; Platelet Count 164 k/uL (150-450); RBC 3.39 m/uL (3.80-5.40); RDW 13.2 % (11.5-15.5); WBC 17.5 k/uL (3.8-10.6)
[2018-10-07] MEDS: SENNOSIDES-DOCUSATE SODIUM 1 EACH TAB PO SCH ×4 (09:16→19:48)
--- NOTE | 2018-10-07 10:31 | P.PN ---
Progress Note - Text Progress Note Date: 10/07/18 33-year-old female status post section with Duramorph spinal. Postop day #1. Patient doing well with no pruritus, no weakness, ambulating well with no issues.
[2018-10-07] MEDS: IBUPROFEN 600 MG TAB PO PRN ×3 (11:47→23:29)
[2018-10-07] MEDS: HYDROcodone/APAP 5-325MG 1 EACH TAB PO PRN ×2 (15:16→19:43)
[2018-10-07] MEDS: CITALOPRAM HYDROBROMIDE 20 MG TAB PO SCH (23:49)
[2018-10-08] MEDS: HYDROcodone/APAP 5-325MG 1 EACH TAB PO PRN ×2 (05:39→18:00)
--- NOTE | 2018-10-08 06:33 | P.PNOBGPC ---
Subjective - Subjective Patient reports: Reports appetite normal, Reports voiding normally, Reports pain well controlled, Reports ambulating normally, Reports other (Patient is complaining of headache when sitting up or walking) : doing well Objective - Vital Signs Latest vital signs: Vital Signs Temp Pulse Resp BP Pulse Ox 10/08/18 05:51 93 18 128/80 97 10/07/18 23:30 98.7 F 85 16 118/69 99 10/07/18 15:22 98.1 F 87 15 118/75 99 10/07/18 12:00 98.1 F 73 18 113/77 97 10/07/18 08:00 98.3 F 72 16 115/80 96 Intake and Output 10/07/18 10/07/18 10/08/18 14:59 22:59 06:59 Other: # Voids 1 1 - Exam Lungs: bilateral: normal Chest: Normal S1, Normal S2 Extremities: Present: normal Abdomen: Present: normal appearance, soft. Absent: distention, tenderness Incision: Present: normal, dry, intact Uterus: Present: normal, firm - Labs Labs: Abnormal Lab Results - Last 24 Hours (Table) 10/07/18 Range/Units 06:20 WBC 17.5 H (3.8-10.6) k/uL RBC 3.39 L (3.80-5.40) m/uL Hgb 10.8 L (11.4-16.0) gm/dL Hct 31.4 L (34.0-46.0) % Neutrophils # 14.4 H (1.3-7.7) k/uL Monocytes # 1.1 H (0-1.0) k/uL Assessment and Plan Assessment: Post operative day #2. Patient is resting in bed and does complain of a headache that is significantly severe when sitting up or when she goes to the bathroom. When she had her spinal placed there was some difficulty with placement and therefore I do have concerns about this being a spinal headache. I discussed this with the patient in the usual evaluation and treatment options. I discussed with the nurse professor of forestry this morning unable to speak with anesthesia to do a consultation for evaluation and possible treatment. CBC yesterday was OK. She is ambulating otherwise and urinating, and tolerating regular diet. Plan today is to continue postoperative care and I will have anesthesia evaluate her headache. Most likely discharge home tomorrow (1) 39 weeks gestation of Current Visit: No Status: Acute Code(s): Z3A.39 - 39 WEEKS GESTATION OF SNOMED Code(s): 56596314 (2) Previous delivery affecting Current Visit: No Status: Acute Code(s): O34.219 - MATERNAL CARE FOR UNSP TYPE SCAR FROM PREVIOUS DEL SNOMED Code(s): 648345227 (3) Rh negative status during Current Visit: No Status: Acute Code(s): O09.899 - SUPERVISION OF OTHER HIGH RISK PREGNANCIES, UNSP TRIMESTER SNOMED Code(s): 805935240
[2018-10-08] MEDS: SENNOSIDES-DOCUSATE SODIUM 1 EACH TAB PO SCH ×2 (08:02→21:00)
[2018-10-08] MEDS: IBUPROFEN 600 MG TAB PO PRN ×3 (08:18→22:05)
[2018-10-08] MEDS: LACTATED RINGERS 1,000 ML IV SCH ×5 (08:48→18:02)
--- NOTE | 2018-10-08 11:52 | P.PCN ---
Date of Procedure: 10/08/18 Anesthesia: local Surgeon: Hiral Suero Pathology: none sent Condition: stable Disposition: PACU Description of Procedure: Procedure: Lumbar Epidural Blood Patch under fluoroscopic guidance Pre-Op Diagnosis: Post Dural Puncture Headache. Post- Op Diagnosis: Post Dural Puncture Headache. Indications: Patient who developed post dural puncture headache following spinal anesthesia for . This headache persisted despite conservative measures and is interfering with her quality of life. Patient denied neck stiffness, photophobia, fever, chills, or new neurologic symptoms. Headache is worse with sitting up and relieved with laying downs. Anesthesia: Local anesthesia to the sking only. PROCEDURE DESCRIPTION / TECHNIQUE: The patient was seen and identified in the emergency room area. Risks, benefits, complications, and alternatives were discussed with the patient. The patient agreed to proceed with the procedure and signed the consent. Vital signs were monitored and remained stable. Time out was completed. From the blackman on the patient's back it seems that her spinal spinal anesthesia was done on the L2 level and started to do the epidural blood patch for the L3-4 level .Subsequently a spinal 22-gauge 3.5 Tuohy epidural needle was inserted and advanced toward the epidural space using the Loss of resistance technique. At the same time, the left anticubital vein was accessed under steril technique using a 20-gauge IV catheter, and 30 ml of blood were obtained. Again after negative aspiration, 24 ml of blood were injected in the epidural space. The injection stopped with the patient started to feel increasing the pressure in her back. Needle was withdrawn intact, skin was cleansed, and bandages were applied. COMPLICATIONS: None COMMENTS:The patient reported immediate relief of the headache after the procedure.
--- NOTE | 2018-10-08 12:00 | FL ---
Fluoroscopy HISTORY: Blood patch 9 seconds fluoroscopy time supplied to the referring clinician. 2 intraoperative C-arm images docume nt the procedure. See dictated report from anesthesia.
[2018-10-08 16:20] VITALS: TEMP 98.4
[2018-10-08] MEDS: CITALOPRAM HYDROBROMIDE 20 MG TAB PO SCH (21:01)
[2018-10-08 23:59] VITALS: RESP 18
[2018-10-09] MEDS: HYDROcodone/APAP 5-325MG 1 EACH TAB PO PRN (03:32)
--- NOTE | 2018-10-09 06:38 | P.PNOBGPC ---
Subjective - Subjective Patient reports: Reports appetite normal, Reports voiding normally, Reports pain well controlled, Reports ambulating normally : doing well Objective - Vital Signs Latest vital signs: Vital Signs Temp Pulse Pulse Resp BP BP Pulse Ox 10/08/18 23:57 98.4 F 73 18 113/81 97 10/08/18 16:00 98.4 F 80 16 121/73 10/08/18 12:15 98.2 F 61 16 130/78 10/08/18 11:19 97.8 F 67 16 133/70 97 10/08/18 08:00 98.5 F 72 16 108/59 97 Intake and Output 10/08/18 10/08/18 10/09/18 14:59 22:59 06:59 Intake Total 50 Balance 50 Intake: IV 50 - Exam Lungs: bilateral: normal Chest: Normal S1, Normal S2 Extremities: Present: normal Abdomen: Present: normal appearance, soft. Absent: distention, tenderness Incision: Present: normal, dry, intact Uterus: Present: normal, firm Assessment and Plan Assessment: Postoperative day #3. Patient status post a blood patch yesterday for a spinal headache. She states that her headache is much improved she does have some residual headache. This point she feels it is tolerable wishes to go home. Vital signs are stable and she is afebrile. Uterus is firm nontender and she is having normal lochia. Her incision is intact and dry. Plan today is to continue routine care and discharge home later this morning. (1) 39 weeks gestation of Current Visit: No Status: Acute Code(s): Z3A.39 - 39 WEEKS GESTATION OF SNOMED Code(s): 82410391 (2) Previous delivery affecting Current Visit: No Status: Acute Code(s): O34.219 - MATERNAL CARE FOR UNSP TYPE SCAR FROM PREVIOUS DEL SNOMED Code(s): 881312965 (3) Rh negative status during Current Visit: No Status: Acute Code(s): O09.899 - SUPERVISION OF OTHER HIGH RISK PREGNANCIES, UNSP TRIMESTER SNOMED Code(s): 053630310
--- NOTE | 2018-10-09 06:48 | P.DS ---
Providers Date of admission: 10/06/18 05:51 Expected date of discharge: 10/09/18 Attending physician: Juan Francisco Collado Primary care physician: Stated None - Discharge Diagnosis(es) (1) 39 weeks gestation of Current Visit: No Status: Acute (2) Previous delivery affecting Current Visit: No Status: Acute (3) Rh negative status during Current Visit: No Status: Acute Hospital Course: Please see dictated H&P for intimate details of this patient's admission. Brief summary this pleasant 33-year-old 4 para 2 female estimated date of confinement 39-0/7 weeks gestation who is admitted to labor and delivery for elective repeat section and tubal ligation. Patient is admitted has above-named surgery. patient did develop a spinal headache which was thought to be related to the anesthesia therefore was taken on day #2 for a blood patch. This did significantly improve her headache. On postoperative 3 she felt be stable for discharge home follow up with me in 1 week. Procedures: Repeat low transverse section and bilateral partial salpingectomy Patient Condition at Discharge: Good Plan - Discharge Summary Discharge Rx Participant: No New Discharge Prescriptions: New Ibuprofen [Motrin] 600 mg PO Q6HR PRN #40 tab PRN Reason: Mild Pain Or Fever >= 100.5 HYDROcodone/APAP 5-325MG [[place] 5-325] 2 each PO Q4HR PRN #36 tab PRN Reason: Moderate Pain No Action Vitamin -[facility] [facility] 1 tab PO DAILY Discharge Medication List Vitamin -[facility] 1 tab PO DAILY 02/22/17 [History] HYDROcodone/APAP 5-325MG [[place] 5-325] 2 each PO Q4HR PRN #36 tab 10/09/18 [Rx] Ibuprofen [Motrin] 600 mg PO Q6HR PRN #40 tab 10/09/18 [Rx] Follow up Appointment(s)/Referral(s): Juan Francisco Collado MD [STAFF PHYSICIAN] - 10/14/18 1:30 pm (Patient also has a appointment on November 17 at 11:15 AM.) Patient Instructions/Handouts: (DC) Activity/Diet/Wound Care/Special Instructions: No heavy lifting or strenuous activity for 6 weeks. Please call if any fever, chills, excessive vaginal bleeding, and/or abdominal pain. No intercourse for 6 weeks. Discharge Disposition: HOME SELF-CARE
[2018-10-09] MEDS: IBUPROFEN 600 MG TAB PO PRN (07:50)
[2018-10-09 08:05] VITALS: BP 113/71; PULSE 68
[2018-10-09] MEDS: SENNOSIDES-DOCUSATE SODIUM 1 EACH TAB PO SCH (09:41)
== END 2018-10-09 10:40 | disposition home or self-care (01) | DRG 785 ==
LOC: 4FBP 05:51
PROVIDERS: ADMIT Obstetrics & Gynecology; ATTEND Obstetrics & Gynecology
PROC: 0UB70ZZ Excision of Bilateral Fallopian Tubes, Open Approach (ICD-10-PCS; 2018-10-06)
PROC: 10D00Z1 Extraction of Products of Conception, Low, Open Approach (ICD-10-PCS; principal; 2018-10-06 08:00)
PROC: 3E0R3GC Introduction of Other Therapeutic Substance into Spinal Canal, Percutaneous Approach (ICD-10-PCS; 2018-10-08)
DX: O34.211 Maternal care for low transverse scar from previous cesarean delivery (principal); O26.893 Other specified pregnancy related conditions, third trimester; O99.344 Other mental disorders complicating childbirth; O99.62 Diseases of the digestive system complicating childbirth; O89.4 Spinal and epidural anesthesia-induced headache during the puerperium; F32.9 Major depressive disorder, single episode, unspecified; F41.9 Anxiety disorder, unspecified; K21.9 Gastro-esophageal reflux disease without esophagitis; Z37.0 Single live birth; Z3A.39 39 weeks gestation of pregnancy; Z67.91 Unspecified blood type, Rh negative; Z30.2 Encounter for sterilization
CPT/HCPCS: 62273; 85025; 86850; 86870; 86880; 86900; 86901; 88302

== ENCOUNTER → 2021-02-02 | Outpatient (CLI) | payer BC ==
[2021-02-02 19:37] LABS: Basophils # (A) 0.07 X 10*3/uL (0.00-0.10); Basophils % (A) 0.9 %; Eosinophils # (A) 0.21 X 10*3/uL (0.04-0.35); Eosinophils % (A) 2.7 %; HCT 37.9 % (37.2-46.3); HGB 12.2 g/dL (12.0-15.0); Lymphocytes % (A) 27.8 %; MCH 29.3 pg (27.0-32.0); MCHC 32.2 g/dL (32.0-37.0); MCV 90.9 fL (80.0-97.0); Monocytes # (A) 0.74 X 10*3/uL (0.20-1.00); Monocytes % (A) 9.4 %; Neutrophils # (A) 4.65 X 10*3/uL (1.80-7.70); Neutrophils % (A) 58.8 %; Platelet Count 330 X 10*3/uL (140-440); RBC 4.17 X 10*6/uL (4.10-5.20); RDW 13.1 % (11.5-14.5)
[2021-02-02 22:31] LABS: Albumin 4.2 g/dL (3.80-4.90); Albumin/Globulin Ratio 1.62 (1.60-3.17); Anion Gap 7.7 mmol/L (4.00-12.00); BUN/Creat Ratio 15.71 Ratio (12.00-20.00); Carbon Dioxide 24.3 mmol/L (21.6-31.8); Chol/HDL Ratio 3.9; Globulin 2.6 g/dL (1.6-3.3); Potassium 4.4 mmol/L (3.5-5.5); Total Bilirubin 0.5 mg/dL (0.3-1.2); Total Protein 6.8 g/dL (6.2-8.2)
[2021-02-02 22:35] LABS: Hemoglobin A1C 5.1 % (4.0-6.0)
== END | disposition home or self-care (01) ==
LOC: LABWHC1 09:56
PROVIDERS: ATTEND Family Medicine
DX: Z00.00 Encounter for general adult medical examination without abnormal findings (principal)
CPT/HCPCS: 36415; 80053; 80061; 83036; 84443; 85025

== ENCOUNTER → 2023-03-19 | Outpatient (CLI) | payer MEDICAID ==
--- NOTE | 2023-03-20 18:17 | MM ---
Reason for Exam: Screening (asymptomatic). Baseline mammogram. Patient History: Menarche at age 14. First Full-Term at age 25. Last menstrual period: 03/18/2023 Risk Values: Jess 5 year model risk: 0.3%. NCI Lifetime model risk: 9.2%. Prior Study Comparison: Patient's first Mammogram. No prior studies available for comparison. Tissue Density: The breast tissue is heterogeneously dense. This may lower the sensitivity of mammography. Findings: Analyzed By CAD. Appears symmetrical. No suspicious groups of microcalcifications, spiculated or lobular masses, architectural distortion or other secondary signs of malignancy are mammographically apparent. Overall Assessment: Benign, BI-RAD 2 Management: Screening Mammogram of both breasts in 1 year. A negative mammogram report should not preclude additional follow up of suspicious palpable abnormalities. Patient should continue monthly self breast exam. A clinical breast exam by your physician is recommended on an annual basis and results should be correlated with mammographic findings. Electronically signed and approved by: Jose Luis Chong D.O. Radiologis
== END | disposition home or self-care (01) ==
LOC: RADMAMWWP 07:41
PROVIDERS: ATTEND Obstetrics & Gynecology
DX: Z12.31 Encounter for screening mammogram for malignant neoplasm of breast (principal)
CPT/HCPCS: 77063; 77067

== ENCOUNTER → 2023-03-19 | Outpatient (CLI) | payer MEDICAID ==
[2023-03-19 11:06] LABS: Basophils # (A) 0.08 X 10*3/uL (0.00-0.10); Eosinophils # (A) 0.22 X 10*3/uL (0.04-0.35); Eosinophils % (A) 2.7 %; HCT 39.1 % (37.2-46.3); HGB 12.7 d/dL (12.0-15.0); Lymphocytes % (A) 28.9 %; MCH 29.1 pg (27.0-32.0); MCHC 32.5 d/dL (32.0-37.0); MCV 89.7 FL (80.0-97.0); Mean Platelet Volume 10.7 FL (9.5-12.2); Monocytes # (A) 0.85 X 10*3/uL (0.20-1.00); Monocytes % (A) 10.2 %; NRBC Per 100 WBC 0 X 10*3/uL (0.00-0.01); Neutrophils # (A) 4.72 X 10*3/uL (1.80-7.70); Neutrophils % (A) 56.8 %; Platelet Count 327 X 10*3/uL (140-440); RBC 4.36 X 10*6/uL (4.10-5.20); RDW 12.3 % (11.5-14.5)
[2023-03-19 11:28] LABS: ALT 11 U/L (8-44); AST 16 U/L (13-35); Albumin 4.5 d/dL (3.8-4.9); Albumin/Globulin Ratio 1.73 Ratio (1.60-3.17); Alkaline Phosphatase 65 U/L (41-126); BUN/Creat Ratio 17.25 Ratio (12.00-20.00); Blood Urea Nitrogen 13.8 mg/dL (9.0-27.0); Carbon Dioxide 25.6 mmol/L (21.6-31.8); Chloride 103 mmol/L (96-109); Chol/HDL Ratio 3.44 Ratio; Globulin 2.6 d/dL (1.6-3.3); Glucose 83 mg/dL (70-110); LDL Cholesterol,Calculated 111.5 mg/dL (0.0-131.0); Potassium 4.3 mmol/L (3.5-5.5); Sodium 138 mmol/L (135-145); T4, Free (Free Thyroxine) 1.13 ng/dL (0.80-1.80); Total Bilirubin 0.3 mg/dL (0.3-1.2); Total Protein 7.1 d/dL (6.2-8.2)
== END | disposition home or self-care (01) ==
LOC: LABWHC1 08:02
PROVIDERS: ATTEND Family Medicine
DX: Z00.00 Encounter for general adult medical examination without abnormal findings (principal); E04.1 Nontoxic single thyroid nodule
CPT/HCPCS: 36415; 80053; 80061; 83036; 84439; 84443; 84481; 85025

== ENCOUNTER → 2023-04-05 | Outpatient (CLI) | payer MEDICAID, BC ==
--- NOTE | 2023-04-05 14:51 | US ---
EXAMINATION TYPE: US thyroid st tissue head/neck DATE OF EXAM: 04/05/2023 COMPARISON: Multiple US's. CLINICAL INDICATION: Female, 37 years old with history of E04.1 NONTOXIC SINGLE THYROID NODULE; GLAND SIZE: Right Lobe: 4.9 x 2.1 x 1.7 cm Overall Parenchyma: homogenous Left Lobe: 4.3 x 1.4 x 1.4 cm Overall Parenchyma: homogeneous Isthmus Thickness: 0.3 cm NODULES RIGHT: # of nodules measured on right: 2 1. 0.6 X 0.6 x 0.6 cm, mid mid, solid or almost completely solid, isoechoic nodule, which is wider than tall, with smooth margins, without echogenic foci. Prior size: 0.5 x 0.4 x 0.6 cm 2. 0.7 X 0.5 x 0.7 cm, mid mid, solid or almost completely solid, isoechoic nodule, which is wider than tall, with smooth margins, without echogenic foci. Prior size: 0.4 x 0.2 x 0.2 cm LEFT: # of nodules measured on left: 0 ISTHMUS: # of nodules measured in the isthmus: 0 Bilateral neck scanned, no evidence of lymphadenopathy. IMPRESSION: Nonspecific subcentimeter nodularity.
== END | disposition home or self-care (01) ==
LOC: RADUSWWP 13:56
PROVIDERS: ATTEND Family Medicine
DX: E04.1 Nontoxic single thyroid nodule (principal)
CPT/HCPCS: 76536

== ENCOUNTER 2023-05-16 08:19 | Emergency (ER) | payer MEDICAID ==
[2023-05-16 08:43] VITALS: RESP 18
--- NOTE | 2023-05-16 09:00 | ED ---
Eye Problem HPI - General Chief complaint: Eye Problems Stated complaint: Left eye swelling Time Seen by Provider: 05/16/23 08:24 Source: patient, RN notes reviewed Mode of arrival: ambulatory Limitations: no limitations - History of Present Illness Initial comments: This is a 37-year-old female who presents to the emergency department for left eye pain and swelling. Believes that she was bitten by something a few days ago as she saw a bug crawling on her left hand. She is concerned that she may have been bitten by a spider. 2 days ago she started to notice swelling around the eye and red bumps on her forehead. She went to urgent care and was started on Augmentin yesterday. She has taken 2 doses of this. She was told that if symptoms worsen she should come to the emergency department. She does have minor itching and clear drainage from the eye without any significant pain to the eye itself or with eye movement. Denies any significant problems with her vision. MD chief complaint: eye pain - Related Data Home Medications Medication Instructions Recorded Confirmed Vitamin -[employer] 1 tab PO DAILY 02/22/17 10/06/18 Previous Rx's Medication Instructions Recorded HYDROcodone/APAP 5-325MG [[employer] 2 each PO Q4HR PRN #36 tab 10/09/18 5-325] Ibuprofen [Motrin] 600 mg PO Q6HR PRN #40 tab 10/09/18 valACYclovir HCL [Valacyclovir] 1,000 mg PO Q8H 7 Days #21 tab 05/16/23 Allergies Allergy/AdvReac Type Severity Reaction Status Date / Time No Known Allergies Allergy Verified 05/16/23 08:23 Review of Systems ROS Statement: Those systems with pertinent positive or pertinent negative responses have been documented in the HPI. ROS Other: All systems not noted in ROS Statement are negative. Past Medical History Past Medical History: GERD/Reflux Additional Past Medical History / Comment(s): ACID REFLUX WITH . - LMP MAY 2016. History of Any Multi-Drug Resistant Organisms: None Reported Past Surgical History: Appendectomy, Section Additional Past Surgical History / Comment(s): [place] tooth extraction Past Anesthesia/Blood Transfusion Reactions: No Reported Reaction Additional Past Anesthesia/Blood Transfusion Reaction / Comment(s): NAUSEA AT BEGINNING OF OR IN PAST Past Psychological History: Anxiety, Depression Smoking Status: Never smoker Past Alcohol Use History: None Reported Past Drug Use History: None Reported - Past Family History Mother Family Medical History: No Reported History General Exam Limitations: no limitations General appearance: alert, in no apparent distress Head exam: Present: atraumatic, normocephalic, other (Erythematous lesions involving the left side of the forehead and left side of the nose.) Eye exam: Present: PERRL, EOMI, conjunctival injection, other (Left periorbital swelling with mild erythema.) Respiratory exam: Present: normal lung sounds bilaterally. Absent: respiratory distress, wheezes, rales, rhonchi, stridor Cardiovascular Exam: Present: regular rate, normal rhythm, normal heart sounds. Absent: systolic murmur, diastolic murmur, rubs, gallop, clicks Neurological exam: Present: alert, oriented X3, CN II-XII intact Psychiatric exam: Present: normal affect, normal mood Course Vital Signs 05/16/23 05/16/23 05/16/23 08:20 10:23 11:04 Temperature 98 F 98 F 98.2 F Pulse Rate 62 65 67 Respiratory 18 18 18 Rate Blood Pressure 121/81 125/78 120/89 O2 Sat by Pulse 98 98 99 Oximetry Medical Decision Making - Medical Decision Making This is a 37-year-old female who presents to the emergency department for left eye swelling and a rash. Was pt. sent in by a medical professional or institution? @ -No Did you speak to anyone other than the patient for history? @ -No Did you review nursing and triage notes? @ -Yes, and I agree, it is accurate with regards to the patient's symptoms. Were old charts reviewed? @ -No Differential Diagnosis? @ -Differential Eye Pain/Swelling: Conjuncitivitis (viral, bacterial, allergic), corneal abrasion, foreign body, iritis, uveitis, keratitis, acute angle closure glaucoma, this is not meant to be an all-inclusive list. EKG interpreted by me (3pts min.)? @ -Not obtained X-rays interpreted by me (1pt min.)? @ -Not obtained CT interpreted by me (1pt min.)? @ -Not obtained U/S interpreted by me (1pt. min.)? @ -Not obtained What testing was considered but not performed? (CT, X-rays, U/S, labs)? Why? @ -None What meds were considered but not given? Why? @ -None Did you discuss the management of the patient with other professionals? @ -Yes, the office for Dr. Roach, ID, who advised that he is only in the office on Saturday and Saturday afternoons. I then spoke with Dr. Roach, who advised that the other consideration at this time would be a facial cellulitis, however this would be less likely given the description and location of the symptoms. He advised that given her younger age and because she is otherwise healthy, she could start with outpatient management and return if symptoms worsen for IV medication. Did you reconcile home meds? @ -No Was smoking cessation discussed for >3mins.? @ -No Was critical care preformed (if so, how long)? @ -No Were there social determinants of health that impacted care today? How? (Homelessness, low income, unemployed, alcoholism, drug addiction, transportation, low edu. Level, literacy, decrease access to med. care, penitentiary, rehab)? @ -No Was there de-escalation of care discussed even if they declined? (Discuss DNR or withdrawal of care, Hospice)? @ -No What co-morbidities impacted this encounter? (DM, HTN, Smoking, COPD, CAD, Cancer, CVA, Hep., AIDS, mental health diagnosis, sleep apnea, morbid obesity)? @ -None Was patient admitted / discharged? @ -Discharged. Lab work obtained and found to be nonactionable. Fluorescein staining performed without any acute irregularities noted. She did not have any pain to the eye itself or with eye movement. Physical examination is suggestive of a herpes zoster ophthalmicus, however she does have associated left-sided facial swelling which appeared unusual. Patient evaluated by ED attending, Dr. Islas as well and he advised discussion with ID. I first spoke with Dr. Roach's office to see if they could get her in for an appointment, however they advised that he is only in the office on Saturday and Saturday afternoons. I spoke with Dr. Roach himself. He said that this does sound like a herpes zoster ophthalmicus, and the other consideration would be a facial cellulitis. Because she is otherwise young and healthy, he advised that she can start on outpatient medication and return if symptoms worsen and necessitate the need for IV management. Patient was given a prescription for 7 course of Valtrex. Advised that she can continue with the Augmentin as well and alternate with ibuprofen and Tylenol as needed for pain relief. Undiagnosed new problem with uncertain prognosis? @ -None Drug Therapy requiring intensive monitoring for toxicity (Heparin, Nitro, Insulin, Cardizem)? @ -None Were any procedures done? @ -None Diagnosis/symptom? @ -Herpes zoster ophthalmicus Acute, or Chronic, or Acute on Chronic? @ -Acute Uncomplicated (without systemic symptoms) or Complicated (systemic symptoms)? @ -Uncomplicated Side effects of treatment? @ -None Exacerbation, Progression, or Severe Exacerbation] @ -Not applicable Poses a threat to life or bodily function? @ -This does pose risk for vision loss if it were to progress and involve the eye. Return precautions reviewed in depth, the patient is instructed to return to the emergency department with any new, worsening, or concerning symptoms. Patient verbalized understanding. This case was discussed in detail with the attending ED physician, Dr. Islas. Presentation, findings, and treatment plan discussed in detail as well. - Lab Data Result diagrams: 05/16/23 09:20 05/16/23 09:20 Lab Results 05/16/23 05/16/23 Range/Units 09:20 09:20 WBC 5.9 (3.8-10.6) k/uL RBC 4.32 (3.80-5.40) m/uL Hgb 13.0 (11.4-16.0) gm/dL Hct 37.9 (34.0-46.0) % MCV 87.8 (80.0-100.0) fL MCH 30.2 (25.0-35.0) pg MCHC 34.4 (31.0-37.0) g/dL RDW 12.6 (11.5-15.5) % Plt Count 238 (150-450) k/uL MPV 7.6 Neutrophils % 58 % Lymphocytes % 24 % Monocytes % 9 % Eosinophils % 4 % Basophils % 1 % Neutrophils # 3.4 (1.3-7.7) k/uL Lymphocytes # 1.4 (1.0-4.8) k/uL Monocytes # 0.5 (0-1.0) k/uL Eosinophils # 0.3 (0-0.7) k/uL Basophils # 0.1 (0-0.2) k/uL Sodium 137 (137-145) mmol/L Potassium 4.3 (3.5-5.1) mmol/L Chloride 107 (98-107) mmol/L Carbon Dioxide 21 L (22-30) mmol/L Anion Gap 9 mmol/L BUN 11 (7-17) mg/dL Creatinine 0.69 (0.52-1.04) mg/dL Est GFR (CKD-EPI)AfAm >90 (>60 ml/min/1.73 sqM) Est GFR (CKD-EPI)NonAf >90 (>60 ml/min/1.73 sqM) Glucose 90 (74-99) mg/dL Calcium 9.7 (8.4-10.2) mg/dL Total Bilirubin 0.7 (0.2-1.3) mg/dL AST 19 (14-36) U/L ALT 13 (4-34) U/L Alkaline Phosphatase 60 (38-126) U/L C-Reactive Protein 1.0 H (<1.0) mg/dL Total Protein 7.2 (6.3-8.2) g/dL Albumin 4.2 (3.5-5.0) g/dL Amylase 58 (30-110) U/L Lipase 90 (23-300) U/L Disposition Clinical Impression: Herpes zoster ophthalmicus of left eye Disposition: HOME SELF-CARE Instructions (If sedation given, give patient instructions): Shingles (ED) Additional Instructions: Return to the emergency department with any new, worsening, or concerning sy mptoms. Take the antiviral medication every 8 hours for 7 days. You can continue taking the Augmentin. Alternate with ibuprofen and Tylenol as needed for pain relief. Contact the meat carrier as listed below for further evaluation of ongoing symptoms. Let them know that you were seen in the e mergency department and diagnosed with herpes zoster ophthalmicus. You can also use cool compresses and lubricating eye drops. Follow up with your primary care provider in 1-2 days. Prescriptions: valACYclovir HCL [Valacyclovir] 1,000 mg PO Q8H 7 Days #21 tab Is patient prescribed a controlled substance at d/c from ED?: No Referrals: Glen Ramos MD [Primary Care Provider] - 1-2 days Rl Bills MD [STAFF PHYSICIAN] - 1-2 days
[2023-05-16] MEDS ORDERED: PROPARACAINE 0.5% OPHTH DROPS 15 ML BTL LEFT EYE STA (09:15)
[2023-05-16] MEDS ORDERED: FLUORESCEIN STRIPS 1 MG STRIP LEFT EYE ONE (09:15)
[2023-05-16] MEDS ORDERED: valACYclovir HCL 1,000 MG TABLET PO ONE (09:15)
[2023-05-16 09:36] LABS: Basophils # (A) 0.1 k/uL (0-0.2); Basophils % (A) 1 %; Eosinophils # (A) 0.3 k/uL (0-0.7); Eosinophils % (A) 4 %; HCT 37.9 % (34.0-46.0); Lymphocytes # (A) 1.4 k/uL (1.0-4.8); Lymphocytes % (A) 24 %; MCH 30.2 pg (25.0-35.0); MCHC 34.4 g/dL (31.0-37.0); MCV 87.8 fL (80.0-100.0); Mean Platelet Volume 7.6; Monocytes # (A) 0.5 k/uL (0-1.0); Monocytes % (A) 9 %; Neutrophils # (A) 3.4 k/uL (1.3-7.7); Neutrophils % (A) 58 %; Platelet Count 238 k/uL (150-450); RBC 4.32 m/uL (3.80-5.40); RDW 12.6 % (11.5-15.5); WBC 5.9 k/uL (3.8-10.6)
[2023-05-16 09:53] LABS: ALT 13 U/L (4-34); AST 19 U/L (14-36); African American GFR (CKD) >90 (>60 ml/min/1.73 sqM); Albumin 4.2 g/dL (3.5-5.0); Alkaline Phosphatase 60 U/L (38-126); Amylase 58 U/L (30-110); Anion Gap 9 mmol/L; Blood Urea Nitrogen 11 mg/dL (7-17); Calcium 9.7 mg/dL (8.4-10.2); Carbon Dioxide 21 mmol/L (22-30); Chloride 107 mmol/L (98-107); Glucose 90 mg/dL (74-99); Lipase 90 U/L (23-300); Non-African American GFR(CKD) >90 (>60 ml/min/1.73 sqM); Potassium 4.3 mmol/L (3.5-5.1); Sodium 137 mmol/L (137-145); Total Bilirubin 0.7 mg/dL (0.2-1.3); Total Protein 7.2 g/dL (6.3-8.2)
[2023-05-16] MEDS ORDERED: ACET/COD 300 MG/30 MG STARTER PACK 6 TAB BTL PO STA (10:51)
[2023-05-16] MEDS ORDERED: IBUPROFEN 600 MG STARTER PACK 4 TAB BTL PO STA (10:51)
[2023-05-16 11:20] VITALS: BP 120/89; PULSE 67; TEMP 98.2
== END 2023-05-16 11:05 | disposition home or self-care (01) ==
LOC: EC 08:19
DX: B02.39 Other herpes zoster eye disease (principal); Z86.59 Personal history of other mental and behavioral disorders
CPT/HCPCS: 36415; 80053; 82150; 83690; 85025; 86140; 99283

== ENCOUNTER → 2024-12-23 | Outpatient (CLI) | payer MEDICAID ==
--- NOTE | 2024-12-24 08:22 | US ---
EXAMINATION TYPE: US pelvis complete transvag DATE OF EXAM: 12/23/2024 COMPARISON: NONE CLINICAL INDICATION: Female, 39 years old with history of N92.1 EXCESSIVE AND FREQUENT MENSTRUATION; Abnormal menses TECHNIQUE: Transvaginal (TV) and Transabdominal (TA) . Transabdominal grayscale sonographic images of the pelvis were acquired. Transvaginal sonographic im ages were medically necessary to better assess the following anatomy: Uterus and ovaries Doppler imaging: Not performed. FINDINGS: EXAM MEASUREMENTS: Uterus: 9.3 x 4.9 x 5.9 cm Endometrial Stripe: 1.4 cm 1. Uterus: Retroverted. Nabothian cysts seen. There is history of prior , the 9 mm cystic area along the anterior lower uterine segment could reflect a scar niche; clinically correla te. 2. Endometrium: wnl 3. Right Ovary: 3.9 x 2.0 x 2.3 cm with follicular change 4. Left Ovary: 3.3 x 2.0 x 2.0 cm with follicular change 5. Bilateral Adnexa: wnl 6. Posterior cul-de-sac: Small amount of fluid seen. IMPRESSION: 1. History of prior . There is a 9 mm cystic area anteriorly low in the uterus that could re present a cervical nabothian cyst versus a scar niche. 2. Retroverted uterus. 3. Follicular changes in the ovaries. 4. Small amount of cul-de-sac free fluid likely physiologic. [facility], , 12/24/2024 8:20 AM
== END | disposition home or self-care (01) ==
LOC: RADUSWWP 15:44
PROVIDERS: ATTEND Family Medicine
DX: N92.1 Excessive and frequent menstruation with irregular cycle (principal); N85.4 Malposition of uterus
CPT/HCPCS: 76830; 76856